=== PATIENT | female | born 1980 | race Caucasian/White ===

== ENCOUNTER 2024-03-22 18:05 | Emergency (ER) | payer SELFPAY ==
[2024-03-22 18:16] VITALS: BP 125/82; PULSE 66; RESP 18; TEMP 99.6; BMI 28.8
[2024-03-22] MEDS ORDERED: IBUPROFEN 400 MG TABLET (FP) PO ONE (18:39)
[2024-03-22] MEDS: IBUPROFEN 400 MG TABLET (FP) PO ONE (18:41)
== END 2024-03-22 21:05 | disposition home or self-care (01) ==
LOC: JERFT 18:05 → JER 18:05 → JERFT 21:05
DX: S99.921A Unspecified injury of right foot, initial encounter (principal); W10.1XXA Fall (on)(from) sidewalk curb, initial encounter; Y93.01 Activity, walking, marching and hiking
CPT/HCPCS: 73562-TC-LT-FY; 73590-TC-LT-FY; 73610-TC-RT-FY; 73630-TC-RT-FY; 99283-25